=== PATIENT | male | born 1930 | race Two or more races ===

== ENCOUNTER 2019-04-04 10:18 | Outpatient (CLI) | payer MEDICARE ==
[~2019-04-04] VITALS: Ht 157.5 cm; Wt 52.6 kg
[2019-04-04 14:02] VITALS: BP 133/75
[2019-04-04] MEDS ORDERED: FLOMAX0.4 MG ORAL (14:02)
[2019-04-04] MEDS ORDERED: ASPIRIN EC81 MG ORAL (14:02)
[2019-04-04] MEDS ORDERED: IBUPROFEN PO (14:02)
[2019-04-04] MEDS ORDERED: JANUVIA100 MG ORAL (14:02)
[2019-04-04] MEDS ORDERED: LISINOPRIL10 MG ORAL (14:02)
[2019-04-04] MEDS ORDERED: NORCO 5-325 TA1 EACH ORAL (14:02)
[2019-04-04] MEDS ORDERED: ATENOLOL25 MG ORAL (14:02)
[2019-04-04] MEDS ORDERED: ISOSORBIDE MONO10 MG PO (14:02)
[2019-04-04] MEDS ORDERED: ATORVASTATIN CA80 MG ORAL (14:02)
[2019-04-04] MEDS ORDERED: METFORMIN HCL500 M1 ORAL (14:02)
[2019-04-04] MEDS ORDERED: CELEBREX200 MG ORAL (14:02)
[2019-04-04] MEDS ORDERED: VITAMIN D 50,000 PO (14:02)
[2019-04-04] MEDS ORDERED: PROLIA60 MG/1 ML SUBQ (14:02)
== END 2019-04-04 12:18 | disposition home or self-care (01) ==
LOC: PAN 10:18
DX: R10.9 Unspecified abdominal pain (principal)
CPT/HCPCS: G0463

== ENCOUNTER 2019-04-05 09:40 | Day surgery (SDC) | payer MEDICARE, MEDICAID ==
[~2019-04-05] VITALS: Ht 160 cm; Wt 53.1 kg
[2019-04-05] VITALS (8 sets, daily range): BP systolic 111–128; BP diastolic 58–72
[~2019-04-05 09:40] MED LIST: ASPIRIN EC81 MG ORAL; ATENOLOL25 MG ORAL; ATORVASTATIN CA80 MG ORAL; CELEBREX200 MG ORAL; FLOMAX0.4 MG ORAL; IBUPROFEN PO; ISOSORBIDE MONO10 MG PO; JANUVIA100 MG ORAL; LISINOPRIL10 MG ORAL; LR 1000ml 1,000 ML IVLG SCH; METFORMIN HCL500 M1 ORAL; NORCO 5-325 TA1 EACH ORAL; PROLIA60 MG/1 ML SUBQ; VITAMIN D 50,000 PO
[2019-04-05] MEDS ORDERED: Midazolam 2mg/2ml Inj IVP PRN (10:30)
[2019-04-05] MEDS ORDERED: fentaNYL 100 mcg/2 mL IV PRN (10:30)
[2019-04-05] MEDS ORDERED: DiphenhydrAMINE 50mg/ml Inj IVP PRN (10:30)
[2019-04-05] MEDS ORDERED: LR 1000ml 1,000 ML IVLG SCH (10:30)
[2019-04-05] MEDS ORDERED: Atropine Inj 1mg/10ml Syr IV PRN (10:30)
--- NOTE | 2019-04-05 10:31 | Anethesia Preoperative Eval ---
Anesthesia Pre-op PMH/ROS General Date of Evaluation: Apr 05, 2019 Time of Evaluation: 10:31 Anesthesiologist: zen ASA Score: ASA 4 Mallampati Score Class I : Soft palate, uvula, fauces, pillars visible Class II: Soft palate, uvula, fauces visible Class III: Soft palate, base of uvula visible Class IV: Only hard plate visible Mallampati Classification: Class II Surgeon: jermain Diagnosis: gastric lesion/mass Surgical Procedure: egd Anesthesia History: none Social History: smoking - former smoker Family History: no anesthesia problems Allergies: Coded Allergies: No Known Allergies (Unverified , 04/05/19) Medications: see eMAR Patient NPO?: Yes Past Medical History Cardiovascular: Reports: HTN, UT, other - hypercholesterolemia Endocrine: Reports: DM Anesthesia Pre-op Phys. Exam Physician Exam Constitutional: NAD Neurologic: CN 2-12 intact Cardiovascular: RRR Respiratory: CTA Gastrointestinal: S/NT/ND Airway Exam Mallampati Score: Class II MO: limited Neck: flexible TMD: 2fb ROM: limited Anesthesia Pre-op A/P Studies Pre-op Studies: EKG - nsr, inferior infarct Risk Assessment & Plan Assessment: asa4 Plan: mac Status Change Before Surgery: No Pre-Antibiotics Drug: Sabina Rodríguez MD Apr 05, 2019 10:31
[2019-04-05] MEDS ORDERED: LR 1000ml ONE (11:00)
[2019-04-05] MEDS ORDERED: Propofol 200mg/20ml IV ONE (11:00)
[2019-04-05] MEDS ORDERED: Lidocaine 1% MPF 10mg/ml 5ml ONE (11:00)
--- NOTE | 2019-04-05 11:04 | Short Stay Surgery H&P ---
History of Present Illness History of Present Illness Chief Complaint see dictation HPI Jamee Denise Coburn is a 88 year old male who was admitted on for Gastric Lesion Patient History Allergies: Coded Allergies: No Known Allergies (Unverified , 04/05/19) Medication History Scheduled Aspirin Ec* (Aspirin Ec*), 81 MG ORAL DAILY, (Reported) Atenolol* (Tenormin*), 25 MG ORAL DAILY, (Reported) Atorvastatin Calcium* (Lipitor*), 80 MG ORAL BEDTIME, (Reported) Celecoxib* (Celebrex*), 200 MG ORAL DAILY, (Reported) Denosumab (Prolia), 60 MG SUBQ EVERY 6 MONTHS, (Reported) Lisinopril* (Lisinopril*), 10 MG ORAL DAILY, (Reported) Metformin Hcl* (Metformin Hcl*), 500 MG ORAL DAILY, (Reported) Sitagliptin (Januvia), 100 MG ORAL DAILY, (Reported) Tamsulosin HCl (Flomax), 0.4 MG ORAL DAILY, (Reported) [Ibuprofen], 400 MG PO DAILY, (Reported) [Vitamin D 50,000 ], 50,000 UNIT PO QWEEK, (Reported) Scheduled PRN Hydrocodone Bit/Acetaminophen 5-325* ([place] 5-325*), 1 TAB ORAL Q6H PRN for For Pain, (Reported) Miscellaneous Medications Isosorbide Mononitrate (Isosorbide Mononitrate), 30 MG PO, (Reported) Physical Exam Vital Signs Last Vital Signs Date Time Temp Pulse Resp B/P (MAP) Pulse Ox O2 Delivery O2 Flow Rate FiO2 04/05/19 11:01 Room Air 04/05/19 10:39 97.9 64 18 114/72 96 Plan Attestation Are the patient's medical conditions optimized for surgery? Felipe Younger MD Apr 05, 2019 11:04
--- NOTE | 2019-04-05 11:04 | Pre-Procedure Note/Attestation ---
Pre-Procedure Note/Attestation Complete Prior to Procedure Planned Procedure: not applicable Procedure Narrative: egd Indications for Procedure Pre-Operative Diagnosis: gastric mass Attestation I attest that I discussed the nature of the procedure; its benefits; risks and complications; and alternatives (and the risks and benefits of such alternatives ), prior to the procedure, with the patient (or the patient's legal artist representative). I attest that, if there was a reasonable possibility of needing a blood transfusion, the patient (or the patient's legal artist representative) was given the [facility] standardized written summary, pursuant to the [employer] [place] Blood Safety Act ([place] Health and Safety Code # 1645, as amended). I attest that I re-evaluated the patient just prior to the surgery and that there has been no change in the patient's H&P, except as documented below: Felipe Younger MD Apr 05, 2019 11:04
--- NOTE | 2019-04-05 11:29 | Endoscopy Procedure Note ---
Endoscopy Procedure Note General Indication for Procedure: gastric mass Procedures Performed: EGD Operative Findings/Diagnosis: gastritis Specimen: yes Pt Tolerated Procedure Well: Yes Estimated Blood Loss: none Anesthesia Anesthesiologist: haylie morales Anesthesia: MAC Inserted Devices Implant(s) used?: No GI Core Measures 50 yrs or older w/o bx or poly: Not Applicable 10yrs. F/U recommended: Not Applicable Felipe Younger MD Apr 05, 2019 11:29
--- NOTE | 2019-04-05 12:27 | Immediate Post-Op Evaluation ---
Immediate Post-Op Evalulation Immediate Post-Op Evalulation Procedure: egd w/bx Date of Evaluation: Apr 05, 2019 Time of Evaluation: 11:47 IV Fluids: 300ml lr Blood Products: none Estimated Blood Loss: negligible Blood Pressure Systolic: 119 Blood Pressure Diastolic: 60 Pulse Rate: 63 Respiratory Rate: 18 O2 Sat by Pulse Oximetry: 99 Temperature (Fahrenheit): 97.4 Pain Score (1-10): 0 Nausea: No Vomiting: No Complications none Patient Status: awake, reacts, patent Hydration Status: adequate Drug: Sabina Rodríguez MD Apr 05, 2019 12:27
--- NOTE | 2019-04-05 12:29 | 48 Hour Post Anesthesia Eval ---
Post Anesthesia Evaluation Procedure: egd w/bx Date of Evaluation: Apr 05, 2019 Time of Evaluation: 11:49 Blood Pressure Systolic: 111 0: 61 Pulse Rate: 57 Respiratory Rate: 18 Temperature (Fahrenheit): 97.4 O2 Sat by Pulse Oximetry: 99 Airway: patent Nausea: No Vomiting: No Pain Intensity: 0 Hydration Status: adequate Cardiopulmonary Status: stable Mental Status/LOC: patient returned to baseline Post-Anesthesia Complications: none Follow-up care needed: N/A Sabina Davis MD Apr 05, 2019 12:29
--- NOTE | 2019-04-05 15:00 | Consultation ---
DATE OF CONSULTATION: 04/05/2019 CHIEF COMPLAINT: Abdominal pain. HISTORY OF PRESENT ILLNESS: This is a very pleasant 88-year-old [place] male with past medical history of prostate cancer, diabetes, hypertension, who was referred to us because CT evidence of possible gastric cancer. The patient has no prior history of endoscopy, no colonoscopy. No melena. No hematochezia. No diarrhea. No constipation. No significant weight loss. PAST MEDICAL HISTORY: 1. Diabetes. 2. Hypertension. 3. BPH. 4. Prostate cancer. 5. Arthritis. PAST SURGICAL HISTORY: None. MEDICATIONS: See long list of medications. FAMILY HISTORY: No family history of GI malignancies. SOCIAL HISTORY: The patient denies any tobacco, alcohol, or drug abuse. He is , lives at home with a supportive family. The patient is very active for his age. ALLERGIES: No known allergies. REVIEW OF SYSTEMS: A 10-point review of systems performed and pertinent positives in HPI. PHYSICAL EXAMINATION: VITAL SIGNS: Temperature 98.4, pulse 68, respirations 20, blood pressure is 133/75. HEENT: Normocephalic and atraumatic. Sclerae anicteric. NECK: Supple. No evidence of obvious lymphadenopathy. CARDIOVASCULAR: Regular rate and rhythm. Plus S1 and S2. No obvious murmur. LUNGS: Clear to auscultation bilaterally. ABDOMEN: Positive bowel sounds. Soft and nontender. No rebound. No guarding. No peritoneal sign. EXTREMITIES: No cyanosis. No clubbing. No edema. ASSESSMENT AND PLAN: The patient is an 88-year-old male with abnormal CT findings suggestive of either gastric polyp versus gastric mass, and endoscopy. Plan to schedule him for tomorrow for endoscopy. We discussed about colonoscopy, but given his age, we are going to wait until we do endoscopy. If there is no findings and if the patient continues to be symptomatic, then we will consider doing colonoscopy. I will also plan to do labs on the procedure day. I want to thank, Dr. Felipe Rolon, for this kind referral. Felipe Younger M.D. DR: Nico JOB#: [id number] CC: Felipe Rolon M.D.
--- NOTE | 2019-04-05 15:15 | Procedure Note ---
DATE OF PROCEDURE: 04/05/2019 SURGEON: Felipe Younger M.D. PROCEDURE: Upper endoscopy with biopsy. ANESTHESIA: Per Dr. Billy. INSTRUMENT: Olympus adult flexible upper endoscope. INDICATION: Gastric lesion seen on the CT scan. REASON FOR PROCEDURE: The procedure, risks, benefits, and possible consequences, including hemorrhage, aspiration, perforation and infection, and alternative treatments, were explained to the patient/legal guardian by Dr. Felipe Younger and the patient/legal guardian understood and accepted these risks. DESCRIPTION OF PROCEDURE: After informed consent was obtained and the patient was adequately sedated, Olympus upper endoscope was advanced from mouth into the second portion of the duodenum and retroflexion was performed in the stomach. The patient had evidence of diffuse atrophic gastritis. Biopsy from antrum and body was obtained to rule out H. pylori infection. The patient had, seems to be a gastric submucosal lesion in the antrum of the stomach at about, I would say 6 o'clock position in the peripyloric region, this seems to be a submucosal or sub leiomyoma measured roughly about 2.5 cm in size. Biopsy from this lesion was obtained. At this time, the scope was removed and procedure was terminated. SUMMARY OF FINDINGS: 1. Diffuse gastritis, status post biopsy to rule out H. pylori infection. 2. A submucosal lesion in the antrum of the stomach, roughly measured 2.5 cm in size, status post biopsy, but most probably will need a EUS and FNA for diagnosis. 3. Plan will be to follow biopsies and we will recommend EUS, FNA after the biopsy result is back. I want to thank, Dr. Felipe Rolon for this kind referral. Felipe Younger M.D. DR: JANAY JOB#: [id number] CC: Felipe Rolon M.D.
== END 2019-04-05 12:30 | disposition home or self-care (01) ==
LOC: GAS 09:40
DX: K29.70 Gastritis, unspecified, without bleeding (principal); B96.81 Helicobacter pylori [H. pylori] as the cause of diseases classified elsewhere; E11.9 Type 2 diabetes mellitus without complications; I10 Essential (primary) hypertension; I25.2 Old myocardial infarction; Z79.899 Other long term (current) drug therapy; Z79.82 Long term (current) use of aspirin; E78.00 Pure hypercholesterolemia, unspecified; Z87.891 Personal history of nicotine dependence
CPT/HCPCS: 43239; 82962; J2704; J7120; 94003; 94150

== ENCOUNTER 2019-07-31 12:51 | Outpatient (CLI) | payer MEDICARE, MEDICAID ==
[~2019-07-31 12:51] MED LIST changes: -LR 1000ml 1,000 ML IVLG SCH
--- NOTE | 2019-07-31 20:00 | Progress Note ---
DATE: 07/31/2019 SUBJECTIVE: No complaints at this time. No abdominal pain. No nausea. No vomiting. PHYSICAL EXAMINATION: GENERAL: A well-developed male, in no acute distress. HEENT: Normocephalic, atraumatic. Sclerae anicteric. NECK: Supple. No evidence of obvious lymphadenopathy. CARDIOVASCULAR: Regular rate and rhythm. Plus S1, S2. LUNGS: Clear to auscultation bilaterally. ABDOMEN: Positive bowel sounds. Soft and nontender. No rebound. No guarding. No peritoneal sign. EXTREMITIES: No cyanosis, no clubbing, no edema. ASSESSMENT: 1. H. pylori positive gastritis. 2. Gastric lesion, most probably pending EUS. 3. Diabetes. 4. Hypertension. 5. BPH. 6. History of prostate cancer. 7. Arthritis. PLAN: Patient was given a prescription for H. pylori by another physician. Patient asked me if he should start taking it at this time. I explained to him that he is almost 8 years old and the treatment is very harsh and I will wait until at least EUS is done and then he can start at that time. In terms of EUS, patient is still hesitant to coming to the hospital given the COVID pandemic to get the EUS done. Patient was given the option to get it done when he is ready because now outpatients. Patient was informed that he needs to come back 2 days before the procedure for the nasal swab to rule out COVID and then we are going to schedule him for EUS. Patient is to call back for appointment. I want to thank, Dr. Rolon, for this kind referral. Felipe Younger M.D. DR: DONATO JOB#: [id number] CC: Felipe Rolon M.D.; Fax#: [phone]
== END 2019-07-31 14:51 | disposition home or self-care (01) ==
LOC: PAN 12:51
DX: K29.70 Gastritis, unspecified, without bleeding (principal); B96.81 Helicobacter pylori [H. pylori] as the cause of diseases classified elsewhere; K31.9 Disease of stomach and duodenum, unspecified; E11.9 Type 2 diabetes mellitus without complications; I10 Essential (primary) hypertension; N40.0 Benign prostatic hyperplasia without lower urinary tract symptoms; M19.90 Unspecified osteoarthritis, unspecified site; Z85.46 Personal history of malignant neoplasm of prostate
CPT/HCPCS: 99212